=== PATIENT | female | born 1975 | race Two or more races ===

== ENCOUNTER → 2019-05-20 | Outpatient (CLI) | payer OTHER ==
[~2019-05-20] MED LIST: GRAN1TAB PO; LORA0.5T PO; MYLASS PO; OMEP20CA3 PO; PROC25SU2 PO; SILV-4 TOP; ZOLP-189 PO; [UNRECOGNIZED DRUG - CODE] INJ
[2019-05-20 12:11] LABS: BASO # 0.1 10^3/uL (0.0-0.2); EOS # 0.1 10^3/uL (0.0-0.5); EOS % 1.5 % (0.0-3.0); HEMATOCRIT 47.6 % (36.0-47.0); HEMOGLOBIN 16.4 g/dl (12.0-15.5); LYMPH # 1.8 10^3/uL (1.5-5.0); LYMPH % 25.7 % (24.0-44.0); MEAN CORPUSCULAR HGB CONC 34.5 g/dl (32.0-36.5); MONO # 0.5 10^3/uL (0.0-0.8); NEUTROPHILS # 4.6 10^3/uL (1.5-8.5); NEUTROPHILS % 64.4 % (36.0-66.0); PLATELET COUNT, AUTOMATED 162 10^3/uL (150-450); RED BLOOD COUNT 5.47 10^6/uL (4.00-5.40); WHITE BLOOD COUNT 7.1 10^3/uL (4.0-10.0)
[2019-05-20 12:51] LABS: ALBUMIN 3.5 GM/DL (3.2-5.2); ALT/SGPT 47 U/L (12-78); BILIRUBIN,TOTAL 1.2 MG/DL (0.2-1.0); BLOOD UREA NITROGEN 14 MG/DL (7-18); CALCIUM LEVEL 8.9 MG/DL (8.5-10.1); CARBON DIOXIDE LEVEL 24 MEQ/L (21-32); CHLORIDE LEVEL 102 MEQ/L (98-107); CHOLESTEROL LEVEL 247 MG/DL (<200); CHOLESTEROL RISK RATIO 7.967 (<5); CREATININE FOR GFR 0.78 MG/DL (0.55-1.30); GLOMERULAR FILTRATION RATE > 60.0 (>58); GLUCOSE, FASTING 329 MG/DL (70-100); HDL CHOLESTEROL 31 MG/DL (>40); LDL CHOLESTEROL 137 MG/DL (<100); NON-HDL-C 216 MG/DL; SODIUM LEVEL 137 MEQ/L (136-145); TOTAL PROTEIN 6.8 GM/DL (6.4-8.2); TRIGLYCERIDES LEVEL 396 MG/DL (<150)
== END ==
LOC: M LAB 11:07
PROVIDERS: ATTEND Family Medicine
DX: Z00.00 Encounter for general adult medical examination without abnormal findings (principal)

== ENCOUNTER → 2019-08-11 | Outpatient (CLI) | payer OTHER ==
[~2019-08-11] MED LIST changes: +GASTROGRAFIN SOLUTION 30ML (Q9963) As Ordered ONE; +ISOVUE-370 76% 100ML VIAL (Q9967) As Ordered ONE
--- NOTE | 2019-08-11 18:20 | REP ---
CT neck: 08/11/2019. Indication: Lymphoma. Comparison: None. Technique: Axial images of the neck soft tissues were obtained following 100 ml IV Isovue 370. Sagittal and coronal reconstructions were provided. Findings: There is no abnormal solid soft tissue mass, abnormal fluid collection or cervical lymphadenopathy. The submandibular, parotid and thyroid glands are without focal abnormality. No significant vascular abnormalities are detected. The visualized ocular, intraorbital and intracranial anatomy is unremarkable as well. The airway is patent. Please see dedicated chest CT report for additional details. Impression: No cervical lymphadenopathy. Electronically Signed by Stone Houston DO 08/11/2019 06:11 P
--- NOTE | 2019-08-12 09:07 | REP ---
CT chest with IV contrast: History: Hodgkin's lymphoma, stage III. Uterine cancer. Comparison is made with imaging from prior PET-CT study May 30, 2016. CT contrast dose: 100 ml of intravenous Isovue 370. CT findings: There is no evidence of pleural or pericardial effusion. No hilar or mediastinal mass or adenopathy is seen. No axillary or supraclavicular adenopathy is appreciated. The lung manriquez are essentially clear. No pulmonary nodule or mass lesion is seen. No infiltrate is observed. No filling defect is observed in the pulmonary arterial tree. No other vascular abnormality is appreciated. Bone window settings show no bony destructive lesion. Impression: No active disease. Electronically Signed by Cem Wyman MD 08/12/2019 08:58 A
--- NOTE | 2019-08-12 09:41 | REP ---
CT abdomen and pelvis with IV and oral contrast: History: Hodgkin's lymphoma, stage III. Uterine cancer. Comparison is made with PET-CT findings from May 30, 2016. CT contrast dose: 100 ml of intravenous Isovue 370. 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 Clips are noted in the right upper quadrant indicating previous cholecystectomy. There is moderate diffuse fatty infiltration of the liver. No focal hepatic mass lesion is seen. The spleen is normal in size homogeneous in texture. No adrenal lesion is observed on either side. There is some fatty involution of the pancreas. No pancreatic mass lesion is seen. Kidneys enhance symmetrically and are morphologically intact. There is no evidence of upper abdominal lymphadenopathy. There are two or three clustered lymph nodes in the right common iliac lymph node chain. The largest of these measures 8 mm in short axis dimension. These appear unchanged from the May 30, [address] study[address] There is a normal left common iliac chain lymph node also unchanged. An external iliac lymph node is seen on the right measuring 7 mm in short axis dimension. This actually looks a little smaller than on May 30, 2016. Just below this, there is a larger right external iliac lymph node, 11 mm in short axis dimension, previously 14. There are stable right inguinal lymph nodes the largest of which measures 10 mm in short axis dimension. These are less numerous than on the PET CT study. No left inguinal adenopathy is appreciated. There is a lymph node along the left pelvic sidewall which was not visible on the PET CT. However, this is normal in size, 7 mm in short axis dimension. No abdominal wall defect is seen. Normal appendix is noted. Uterus is surgically absent. Urinary bladder is largely empty but unremarkable. No bony destructive lesion is seen. Impression: 1. Fatty infiltration of the liver. 2. Post cholecystectomy and hysterectomy. 3. Stable right iliac and inguinal lymph nodes Electronically Signed by Cem Wyman MD 08/12/2019 05:37 P
== END ==
LOC: M RAD 15:54
PROVIDERS: ATTEND Internal Medicine Medical Oncology
DX: Z85.42 Personal history of malignant neoplasm of other parts of uterus (principal); C81.20 Mixed cellularity Hodgkin lymphoma, unspecified site
CPT/HCPCS: 70491; 71260; 74177; Q9963; Q9967

== ENCOUNTER → 2019-08-12 | Outpatient (CLI) | payer OTHER ==
[~2019-08-12] MED LIST changes: -GASTROGRAFIN SOLUTION 30ML (Q9963) As Ordered ONE; -ISOVUE-370 76% 100ML VIAL (Q9967) As Ordered ONE
[2019-08-12 10:39] LABS: MALB URINE SIEMENS 31.8 MG/L; MAU/CREAT RATIO 15.9 MCG/MG (0.0-30.0)
[2019-08-12 10:46] LABS: HEMOGLOBIN A1c 12.5 %
== END ==
LOC: M LAB 08:57
PROVIDERS: ATTEND Physician Assistant Medical
DX: R73.9 Hyperglycemia, unspecified (principal)

== ENCOUNTER → 2019-09-09 | Outpatient (CLI) | payer OTHER ==
[~2019-09-09] MED LIST changes: +GLIP10TA18 PO; +LISI-542 PO; +MULTCAP PO
--- NOTE | 2019-09-10 12:12 | REP ---
PET/CT: HISTORY: Restaging Hodgkin's lymphoma lymph node right groin. COMPARISONS: Comparison CT study August 11, 2019. Comparison PET/CT May 30, 2016 and December 22, 2015. TECHNIQUE: 61 minutes following the intravenous injection of a 8.77 mCi dose of F-18 FDG, three-dimensional PET scintigraphy is acquired from the skull base to the proximal thighs. Triplanar noncontrast CT scanning is acquired through the same anatomic range for attenuation correction, and image registration with scan parameters optimized to minimize radiation exposure to the patient. PET scintigraphy and CT datasets were fused and displayed on a workstation with multiplanar and projection display capability. PET/CT FINDINGS: Head and neck soft tissues show no abnormal luis hypermetabolic uptake. There is some skeletal muscle and normal variant uptake about the shoulders. There is no abnormal hypermetabolic uptake above the diaphragm in the thorax. Spleen is not enlarged. No hypermetabolic uptake is seen within the liver or spleen. Gallbladder is surgically absent. Multiple previously identified small lymph nodes in the right common iliac, external iliac, internal iliac, and inguinal chain show hypermetabolic uptake. There are also hypermetabolic luis foci in the left inguinal and left internal iliac region on today's PET/CT. These lymph nodes are not new and have not changed significantly in size. There are hypermetabolic however today ranging in avidity from 2.60 to 7.25 in maximum standard uptake value. One of the right inguinal lymph nodes demonstrates this is 7.25 avidity. IMPRESSION: There is new hypermetabolic uptake in multiple previously noted lymph nodes which have not increased significantly in size or number. Hypermetabolic nodes are seen in the right common iliac, external iliac, internal iliac, and inguinal chain. Hypermetabolic nodes are noted in the left inguinal and left internal iliac chain. Electronically Signed by Cem Wyman MD 09/10/2019 06:27 P
== END ==
LOC: M PLARAD 14:29
PROVIDERS: ATTEND Internal Medicine Medical Oncology
DX: C81.95 Hodgkin lymphoma, unspecified, lymph nodes of inguinal region and lower limb (principal)
CPT/HCPCS: 78815; A9552

== ENCOUNTER → 2019-11-04 | Outpatient (CLI) | payer OTHER ==
[2019-11-04 10:12] LABS: ALBUMIN 3.9 GM/DL (3.2-5.2); ALT/SGPT 34 U/L (12-78); BILIRUBIN,TOTAL 1.1 MG/DL (0.2-1.0); BLOOD UREA NITROGEN 10 MG/DL (7-18); CALCIUM LEVEL 9.1 MG/DL (8.5-10.1); CARBON DIOXIDE LEVEL 26 MEQ/L (21-32); CHLORIDE LEVEL 101 MEQ/L (98-107); CHOLESTEROL LEVEL 187 MG/DL (<200); CHOLESTEROL RISK RATIO 6.032 (<5); CREATININE FOR GFR 0.77 MG/DL (0.55-1.30); GLOMERULAR FILTRATION RATE > 60.0 (>58); GLUCOSE, FASTING 101 MG/DL (70-100); HDL CHOLESTEROL 31 MG/DL (>40); HEMOGLOBIN A1c 6.5 %; LDL CHOLESTEROL 125 MG/DL (<100); NON-HDL-C 156 MG/DL; POTASSIUM SERUM 4.7 MEQ/L (3.5-5.1); SODIUM LEVEL 137 MEQ/L (136-145); TOTAL PROTEIN 7.3 GM/DL (6.4-8.2); TRIGLYCERIDES LEVEL 156 MG/DL (<150)
== END ==
LOC: M LAB 09:14
PROVIDERS: ATTEND Physician Assistant Medical
DX: E11.9 Type 2 diabetes mellitus without complications (principal)

== ENCOUNTER → 2019-12-10 | Outpatient (CLI) | payer OTHER ==
[~2019-12-10] MED LIST changes: +GASTROGRAFIN SOLUTION 30ML (Q9963) As Ordered ONE; +ISOVUE-370 76% 100ML VIAL (Q9967) As Ordered ONE
--- NOTE | 2019-12-10 14:31 | REP ---
REASON: Followup lymphoma. COMPARISON: Multiple latest 08/11/2019. CONTRAST: 100 mL Isovue 370. The mediastinum and pulmonary robbi are unchanged. There is no mass or adenopathy. There are no pleural or pericardial effusions. The imaged osseous structures are stable and intact. Evaluation of the lung manriquez shows them to be stable. No new abnormal nodules, masses or opacities have developed. IMPRESSION: Stable CT examination of the chest. There is no evidence of acute disease. Electronically Signed by Davon Gr DO 12/10/2019 02:34 P
--- NOTE | 2019-12-10 14:39 | REP ---
REASON: Followup Hodgkin lymphoma. COMPARISON: Multiple, the latest contrast enhanced exam 08/11/2019. CONTRAST: 100 mL Isovue 370. The liver, spleen, pancreas, adrenal glands, and kidneys are within normal limits and essentially unchanged. The abdominal aorta and paraaortic regions are within normal limits and essentially unchanged. Once again, note is made of multiple nonenlarged lymph nodes along each iliac chain extending into the pelvis, however, these nodes are nonenlarged by CT criteria and they have gotten slightly smaller compared to the latest prior contrast enhanced CT. These areas cannot be exactly compared to the CT images obtained during PET/CT of 09/09/[address] is a noncontrast enhanced exam. There is no free fluid or free air in the abdomen or pelvis. The intra-abdominal and intrapelvic bowel loops are within normal limits essentially unchanged. Bone window technique throughout the entire exam shows the osseous structures to be stable and intact. IMPRESSION: Multiple retroperitoneal lymph nodes extending into the intrapelvic iliac chain and sidewall bilaterally as described above. Electronically Signed by Davon Gr DO 12/11/2019 08:32 A
== END ==
LOC: M RAD 10:44
PROVIDERS: ATTEND Internal Medicine Medical Oncology
DX: C81.90 Hodgkin lymphoma, unspecified, unspecified site (principal); C54.1 Malignant neoplasm of endometrium
CPT/HCPCS: 71260; 74177; Q9963; Q9967

== ENCOUNTER → 2020-02-29 | Outpatient (REF) | payer OTHER ==
[~2020-02-29] MED LIST changes: -GASTROGRAFIN SOLUTION 30ML (Q9963) As Ordered ONE; -ISOVUE-370 76% 100ML VIAL (Q9967) As Ordered ONE
[2020-02-29 15:09] LABS: HEMOGLOBIN A1c 6.1 %
== END ==
LOC: M LAB REF 13:57
PROVIDERS: ATTEND Physician Assistant Medical
DX: E11.9 Type 2 diabetes mellitus without complications (principal)

== ENCOUNTER → 2020-03-07 | Outpatient (CLI) | payer OTHER ==
[~2020-03-07] MED LIST changes: +GASTROGRAFIN SOLUTION 30ML (Q9963) As Ordered ONE; +ISOVUE-370 76% 100ML VIAL As Ordered ONE
--- NOTE | 2020-03-07 14:46 | REP ---
REASON: History of uterine cancer. All priors reviewed, the latest 12/10/2019. CONTRAST: 100 mL Isovue 370. The mediastinum and pulmonary robbi are stable. No mass or adenopathy has developed. There are no pleural or pericardial effusions. The imaged osseous structures are stable and intact. Evaluation of the lung manriquez shows a new 1 cm sized ground-glass nodule in the right middle lobe abutting the major fissure. There are no other abnormal nodules, masses, or opacities. IMPRESSION: New right middle lobe ground-glass nodule as described above. According to the reviews Fleischner Society criteria, this represents a category 4B lesion. CT/PET recommended at this time. Electronically Signed by Davon Gr DO 03/07/2020 02:53 P
--- NOTE | 2020-03-07 14:58 | REP ---
REASON FOR EXAM: Followup, history of lymphoma and endometrial carcinoma. COMPARISON: Multiple, the latest 12/10/2019. COMPARISON: 100 mL Isovue-370. The liver, spleen, pancreas, adrenal glands, and kidneys are unchanged. The abdominal aorta and para-aortic regions are unchanged. The intra-abdominal and intrapelvic bowel loops and their mesenteries are again seen to be within normal limits. No free fluid or free air is seen in the abdomen or pelvis. Stable lymph nodes are again seen in the retroperitoneum and iliac chain bilaterally. Bone window technique throughout the examination shows the osseous structures to be stable. IMPRESSION: Stable exam. No acute disease. Findings as described above. Electronically Signed by Davon Gr DO 03/07/2020 03:06 P
== END ==
LOC: M RAD 09:24
PROVIDERS: ATTEND Internal Medicine Medical Oncology
DX: Z85.3 Personal history of malignant neoplasm of breast (principal); Z85.79 Personal history of other malignant neoplasms of lymphoid, hematopoietic and related tissues; R91.8 Other nonspecific abnormal finding of lung field; Z85.42 Personal history of malignant neoplasm of other parts of uterus
CPT/HCPCS: 71260; 74177; Q9963; Q9967

== ENCOUNTER → 2020-03-08 | Outpatient (CLI) | payer OTHER ==
[~2020-03-08] MED LIST changes: -GASTROGRAFIN SOLUTION 30ML (Q9963) As Ordered ONE; -ISOVUE-370 76% 100ML VIAL As Ordered ONE
--- NOTE | 2020-03-09 08:21 | REP ---
REASON: Followup. Patient has a history of stage II B Hodgkin's lymphoma and FIGO stage I grade 2 endometrial adenocarcinoma diagnosed in 2009. Prior exams were reviewed, the latest 09/09/2019. Latest prior PET-CT showed hypermetabolic activity in multiple right common iliac, external iliac, internal iliac and inguinal lymph nodes with hypermetabolic activity also seen in the left inguinal and left internal iliac chain. Prior CT examination chest, abdomen, and pelvis 03/07/2020 was reviewed. That examination showed a new ground-glass nodule in the right middle lobe and nonenlarged pelvic lymph nodes appearing stable in size compared to prior CT examination chest abdomen and pelvis 12/10/2019. After the intravenous administration of 802 millicuries of FDG-18, triplane whole body PET-CT was performed from the skull base to the mid thigh. There is no abnormal hypermetabolic activity seen on the neck, chest, abdomen, or pelvis. The ground-glass nodule seen on the prior CT scan is not hypermetabolic. Hypermetabolic activity seen previously in multiple pelvic lymph node chains is no longer present and there is no abnormal hypermetabolic activity seen within the pelvic lymph node chains. IMPRESSION: Negative PET-CT. Electronically Signed by Davon Gr DO 03/09/2020 09:35 A
== END ==
LOC: M PLARAD 09:10
PROVIDERS: ATTEND Internal Medicine Medical Oncology
DX: C81.95 Hodgkin lymphoma, unspecified, lymph nodes of inguinal region and lower limb (principal)
CPT/HCPCS: 78815; A9552

== ENCOUNTER → 2020-09-07 | Outpatient (CLI) | payer OTHER ==
[2020-09-07 12:22] LABS: APPEARANCE, URINE HAZY (CLEAR); BACTERIA, URINE AUTO NEGATIVE (NEGATIVE); BILIRUBIN, URINE AUTO NEGATIVE (NEGATIVE); BLOOD, URINE BLOOD NEGATIVE (NEGATIVE); COLOR, URINE STRAW (YELLOW); GLUCOSE, URINE (UA) AUTO NEGATIVE (NEGATIVE); KETONE, URINE AUTO 1+ mg/dL (NEGATIVE); LEUKOCYTE ESTERASE, URINE AUTO 2+ (NEGATIVE); MUCUS, URINE SMALL (NEGATIVE); NITRITE, URINE AUTO NEGATIVE (NEGATIVE); PROTEIN, URINE AUTO NEGATIVE (NEGATIVE); RBC, URINE AUTO 2 /HPF (0-3); SPECIFIC GRAVITY URINE AUTO 1.006 (1.002-1.035); SQUAMOUS EPITHELIAL CELL UR AU 1 /HPF (0-6); UROBILINOGEN, URINE AUTO 0.2 mg/dL (0.0-2.0); WBC, URINE AUTO 9 /HPF (0-3)
[2020-09-07 12:46] LABS: ALT/SGPT 43 U/L (12-78); BILIRUBIN,TOTAL 0.7 MG/DL (0.2-1.0); BLOOD UREA NITROGEN 16 MG/DL (7-18); CALCIUM LEVEL 9.3 MG/DL (8.5-10.1); CARBON DIOXIDE LEVEL 26 MEQ/L (21-32); CHLORIDE LEVEL 104 MEQ/L (98-107); CHOLESTEROL LEVEL 223 MG/DL (<200); CHOLESTEROL RISK RATIO 5.439 (<5); CREATININE FOR GFR 0.87 MG/DL (0.55-1.30); GLOMERULAR FILTRATION RATE > 60.0 (>58); GLUCOSE, FASTING 109 MG/DL (70-100); HDL CHOLESTEROL 41 MG/DL (>40); HEMOGLOBIN A1c 6.4 %; LDL CHOLESTEROL 162 MG/DL (<100); NON-HDL-C 182 MG/DL; POTASSIUM SERUM 4.9 MEQ/L (3.5-5.1); SODIUM LEVEL 136 MEQ/L (136-145); TOTAL PROTEIN 7.3 GM/DL (6.4-8.2); TRIGLYCERIDES LEVEL 98 MG/DL (<150)
== END ==
LOC: M LAB 11:30
PROVIDERS: ATTEND Physician Assistant Medical
DX: E11.9 Type 2 diabetes mellitus without complications (principal)

== ENCOUNTER → 2021-09-14 | Outpatient (CLI) | payer OTHER ==
[~2021-09-14] MED LIST changes: -LISI-542 PO; +LISI5TAB11 PO
[2021-09-14 10:57] LABS: BASO # 0.1 10^3/uL (0.0-0.2); BASO % 0.8 % (0.0-1.0); EOS # 0.2 10^3/uL (0.0-0.5); EOS % 1.8 % (0.0-3.0); HEMATOCRIT 46.3 % (36.0-47.0); HEMOGLOBIN 15.3 g/dl (12.0-15.5); LYMPH # 2.1 10^3/uL (1.5-5.0); MEAN CORPUSCULAR HEMOGLOBIN 30.3 pg (27.0-33.0); MEAN CORPUSCULAR VOLUME 91.7 fl (80.0-96.0); MONO # 0.6 10^3/uL (0.0-0.8); NEUTROPHILS # 5.7 10^3/uL (1.5-8.5); NEUTROPHILS % 65.9 % (36.0-66.0); PLATELET COUNT, AUTOMATED 161 10^3/uL (150-450); RED BLOOD COUNT 5.05 10^6/uL (4.00-5.40); WHITE BLOOD COUNT 8.6 10^3/uL (4.0-10.0)
[2021-09-14 11:25] LABS: ALBUMIN 3.9 GM/DL (3.2-5.2); ALT/SGPT 45 U/L (12-78); BILIRUBIN,TOTAL 0.7 MG/DL (0.2-1.0); BLOOD UREA NITROGEN 20 MG/DL (7-18); CALCIUM LEVEL 9.7 MG/DL (8.5-10.1); CARBON DIOXIDE LEVEL 30 MEQ/L (21-32); CHLORIDE LEVEL 105 MEQ/L (98-107); CHOLESTEROL LEVEL 221 MG/DL (<200); CHOLESTEROL RISK RATIO 4.911 (<5); CREATININE FOR GFR 0.81 MG/DL (0.55-1.30); GLOMERULAR FILTRATION RATE > 60.0 (>58); GLUCOSE, FASTING 112 MG/DL (70-100); HDL CHOLESTEROL 45 MG/DL (>40); LDL CHOLESTEROL 152 MG/DL (<100); NON-HDL-C 176 MG/DL; POTASSIUM SERUM 5.1 MEQ/L (3.5-5.1); SODIUM LEVEL 139 MEQ/L (136-145); TOTAL PROTEIN 7.4 GM/DL (6.4-8.2); TRIGLYCERIDES LEVEL 122 MG/DL (<150)
== END ==
LOC: M LAB 09:40
PROVIDERS: ATTEND Family Medicine
DX: Z00.00 Encounter for general adult medical examination without abnormal findings (principal); E11.9 Type 2 diabetes mellitus without complications

== ENCOUNTER 2022-01-09 18:17 | Emergency (ER) | payer OTHER ==
[~2022-01-09] VITALS: Ht 160 cm; Wt 81.8 kg
[2022-01-09 21:27] LABS: BASO # 0.1 10^3/uL (0.0-0.2); BASO % 0.7 % (0.0-1.0); EOS # 0.2 10^3/uL (0.0-0.5); EOS % 2.1 % (0.0-3.0); HEMATOCRIT 42.4 % (36.0-47.0); HEMOGLOBIN 14.7 g/dl (12.0-15.5); LYMPH # 2.7 10^3/uL (1.5-5.0); LYMPH % 35.5 % (24.0-44.0); MEAN CORPUSCULAR HEMOGLOBIN 30.8 pg (27.0-33.0); MEAN CORPUSCULAR HGB CONC 34.7 g/dl (32.0-36.5); MEAN CORPUSCULAR VOLUME 88.7 fl (80.0-96.0); MONO # 0.6 10^3/uL (0.0-0.8); MONO % 7.6 % (2.0-8.0); NEUTROPHILS # 4.1 10^3/uL (1.5-8.5); NEUTROPHILS % 53.8 % (36.0-66.0); PLATELET COUNT, AUTOMATED 142 10^3/uL (150-450); RED BLOOD COUNT 4.78 10^6/uL (4.00-5.40); WHITE BLOOD COUNT 7.6 10^3/uL (4.0-10.0)
[2022-01-09] MEDS ORDERED: PROHANCE 279.3MG/ML 15ML VIAL As Ordered ONE (21:44)
[2022-01-09 21:58] LABS: BLOOD UREA NITROGEN 14 MG/DL (7-18); C REACTIVE PROTEIN QUANTITATIV 0.32 MG/DL (0.00-0.30); CARBON DIOXIDE LEVEL 30 MEQ/L (21-32); CHLORIDE LEVEL 108 MEQ/L (98-107); GLOMERULAR FILTRATION RATE > 60.0 (>58); GLUCOSE, FASTING 119 MG/DL (70-100); POTASSIUM SERUM 3.8 MEQ/L (3.5-5.1); SODIUM LEVEL 141 MEQ/L (136-145)
[2022-01-09 22:59] VITALS: BP 154/85
== END 2022-01-10 | disposition home or self-care (01) ==
LOC: M ED 18:17
DX: H53.2 Diplopia (principal); E11.9 Type 2 diabetes mellitus without complications; Z85.71 Personal history of Hodgkin lymphoma; Z92.21 Personal history of antineoplastic chemotherapy; Z91.018 Allergy to other foods; Z88.8 Allergy status to other drugs, medicaments and biological substances
CPT/HCPCS: 70450; 70553; 80048; 85025; 86140; 86618; 99284; A9576

== ENCOUNTER → 2022-01-12 | Outpatient (CLI) | payer OTHER ==
[2022-01-12 10:46] LABS: C REACTIVE PROTEIN QUANTITATIV 0.36 MG/DL (0.00-0.30); FREE T4 0.8 NG/DL (0.76-1.46); THYROID STIMULATING HORMONE 2.62 uIU/ML (0.358-3.740)
== END ==
LOC: M LAB 09:19
PROVIDERS: ATTEND Nurse Practitioner Family
DX: H53.2 Diplopia (principal)

== ENCOUNTER → 2022-01-23 | Outpatient (CLI) | payer OTHER ==
[2022-01-23 13:40] LABS: RHEUMATOID FACTOR QUANT < 10.0 IU/ML (<15.0)
[2022-01-23 13:49] LABS: FOLATE 16.2 NG/ML; VITAMIN B12 LEVEL 605 PG/ML
== END ==
LOC: M LAB 11:42
PROVIDERS: ATTEND Psychiatry & Neurology Neurology
DX: H53.2 Diplopia (principal); H49.40 Progressive external ophthalmoplegia, unspecified eye; H05.119 Granuloma of unspecified orbit

== ENCOUNTER 2022-02-28 17:19 | Emergency (ER) | payer OTHER ==
[~2022-02-28] VITALS: Ht 160 cm; Wt 85.3 kg
[2022-02-28 17:20] VITALS: BP 174/96
[2022-02-28] MEDS ORDERED: ACETAMINOPHEN 325 MG TAB PO ONE (20:40)
[2022-02-28] MEDS ORDERED: NS 1,000 ML IV ONE (20:40)
[2022-02-28 21:34] LABS: BASO # 0.1 10^3/uL (0.0-0.2); BASO % 0.7 % (0.0-1.0); EOS # 0.1 10^3/uL (0.0-0.5); EOS % 1.9 % (0.0-3.0); HEMATOCRIT 43.5 % (36.0-47.0); HEMOGLOBIN 14.7 g/dl (12.0-15.5); LYMPH # 2.8 10^3/uL (1.5-5.0); LYMPH % 40.5 % (24.0-44.0); MEAN CORPUSCULAR HEMOGLOBIN 30.7 pg (27.0-33.0); MEAN CORPUSCULAR HGB CONC 33.8 g/dl (32.0-36.5); MEAN CORPUSCULAR VOLUME 90.8 fl (80.0-96.0); MONO # 0.4 10^3/uL (0.0-0.8); MONO % 6.3 % (2.0-8.0); NEUTROPHILS # 3.5 10^3/uL (1.5-8.5); NEUTROPHILS % 50.3 % (36.0-66.0); PLATELET COUNT, AUTOMATED 153 10^3/uL (150-450); RED BLOOD COUNT 4.79 10^6/uL (4.00-5.40); WHITE BLOOD COUNT 6.9 10^3/uL (4.0-10.0)
[2022-02-28] MEDS ORDERED: methylPREDNISolone 125MG 2ML VIAL IV ONE (21:55)
[2022-02-28 22:03] LABS: ERYTHROCYTE SEDIMENTATION RATE 8 mm/hr (0-20)
[2022-02-28 22:06] LABS: ALBUMIN 3.8 GM/DL (3.2-5.2); ALT/SGPT 32 U/L (12-78); BILIRUBIN,DIRECT < 0.1 MG/DL (0.0-0.2); BILIRUBIN,TOTAL 0.5 MG/DL (0.2-1.0); C REACTIVE PROTEIN QUANTITATIV < 0.30 MG/DL (0.00-0.30); LIPASE 89 U/L (73-393); TOTAL PROTEIN 6.9 GM/DL (6.4-8.2)
[2022-02-28] MEDS ORDERED: PRED10TA2 PO (23:11)
[2022-02-28] MEDS ORDERED: PRED20TA PO (23:11)
== END 2022-02-28 23:57 | disposition home or self-care (01) ==
LOC: M ED 17:19
DX: R51.9 Headache, unspecified (principal); H49.40 Progressive external ophthalmoplegia, unspecified eye; E10.9 Type 1 diabetes mellitus without complications; Z85.71 Personal history of Hodgkin lymphoma; Z85.42 Personal history of malignant neoplasm of other parts of uterus; H53.2 Diplopia; Z91.018 Allergy to other foods; Z88.8 Allergy status to other drugs, medicaments and biological substances
CPT/HCPCS: 70450; 80047; 80076; 83690; 85025; 85652; 86140; 96361; 96374; 99283; J2930

== ENCOUNTER → 2023-01-09 | Outpatient (CLI) | payer OTHER ==
[~2023-01-09] MED LIST changes: +PRED10TA2 PO; +PRED20TA PO
[2023-01-09 13:16] LABS: HEMOGLOBIN A1c 6.6 % (4.0-6.0)
[2023-01-09 13:23] LABS: ALBUMIN 3.8 G/DL (3.2-5.2); ALKALINE PHOSPHATASE 63 U/L (46-116); ALT/SGPT 41 U/L (7.0-40); AST/SGOT 26 U/L (<34); BILIRUBIN,TOTAL 0.6 MG/DL (0.3-1.2); BLOOD UREA NITROGEN 21 MG/DL (9-23); CALCIUM LEVEL 9.1 MG/DL (8.5-10.1); CARBON DIOXIDE LEVEL 26 MMOL/L (20-31); CHLORIDE LEVEL 107 MMOL/L (98-107); CHOLESTEROL LEVEL 216 MG/DL (<200); CHOLESTEROL RISK RATIO 6.08 (<5); CREATININE FOR GFR 0.76 MG/DL (0.55-1.30); GLOMERULAR FILTRATION RATE > 60.0 (>58); GLUCOSE, FASTING 125 MG/DL (60-100); HDL CHOLESTEROL 35.5 MG/DL (>40); LDL CHOLESTEROL 143.3 MG/DL (<100); NON-HDL-C 180.5 MG/DL; SODIUM LEVEL 139 MMOL/L (136-145); TOTAL PROTEIN 6.8 G/DL (5.7-8.2); TRIGLYCERIDES LEVEL 186 MG/DL (<150)
== END ==
LOC: M LAB 11:22
PROVIDERS: ATTEND Nurse Practitioner Family
DX: E78.2 Mixed hyperlipidemia (principal); E11.9 Type 2 diabetes mellitus without complications

== ENCOUNTER 2023-01-29 10:47 | Day surgery (SDC) | payer OTHER ==
[~2023-01-29] VITALS: Ht 160 cm; Wt 82.7 kg
[~2023-01-29 10:47] MED LIST changes: +IBUP80TA PO; +NS 1,000 ML IV ONE; +TOPI-254 PO
[2023-01-29] MEDS ORDERED: propofoL 200 MG/20 ML VIAL As Ordered ONE (11:38)
[2023-01-29] MEDS ORDERED: LIDOCAINE 2% 100MG/5ML SDV (FOR ANES.) As Ordered ONE (11:38)
[2023-01-29 11:56] VITALS: BP 149/79
== END 2023-01-29 12:22 | disposition home or self-care (01) ==
LOC: M OPP 10:47
PROVIDERS: ATTEND Surgery
DX: Z12.11 Encounter for screening for malignant neoplasm of colon (principal); K64.0 First degree hemorrhoids; Z79.1 Long term (current) use of non-steroidal anti-inflammatories (NSAID); Z79.899 Other long term (current) drug therapy; Z88.8 Allergy status to other drugs, medicaments and biological substances; Z91.018 Allergy to other foods

== ENCOUNTER → 2024-03-30 | Outpatient (CLI) | payer OTHER ==
[~2024-03-30] MED LIST changes: -NS 1,000 ML IV ONE; +TOPI-21 PO; -TOPI-254 PO
[2024-03-30 11:43] LABS: BASO # 0.1 10^3/uL (0.0-0.2); BASO % 0.7 % (0.0-1.0); EOS # 0.1 10^3/uL (0.0-0.5); HEMATOCRIT 44.1 % (36.0-47.0); HEMOGLOBIN 14.7 g/dl (12.0-15.5); LYMPH # 2.5 10^3/uL (1.5-5.0); LYMPH % 37.1 % (24.0-44.0); MEAN CORPUSCULAR HEMOGLOBIN 30.3 pg (27.0-33.0); MEAN CORPUSCULAR HGB CONC 33.3 g/dl (32.0-36.5); MEAN CORPUSCULAR VOLUME 90.9 fl (80.0-96.0); MONO # 0.5 10^3/uL (0.0-0.8); MONO % 6.6 % (2.0-8.0); NEUTROPHILS # 3.7 10^3/uL (1.5-8.5); NEUTROPHILS % 54.3 % (36.0-66.0); PLATELET COUNT, AUTOMATED 135 10^3/uL (150-450); RED BLOOD COUNT 4.85 10^6/uL (4.00-5.40); WHITE BLOOD COUNT 6.8 10^3/uL (4.0-10.0)
[2024-03-30 12:15] LABS: ALBUMIN 3.9 G/DL (3.2-5.2); ALKALINE PHOSPHATASE 63 U/L (46-116); ALT/SGPT 32 U/L (7.0-40); AST/SGOT 17 U/L (<34); BILIRUBIN,TOTAL 0.6 MG/DL (0.3-1.2); BLOOD UREA NITROGEN 17 MG/DL (9-23); CALCIUM LEVEL 9.2 MG/DL (8.5-10.1); CARBON DIOXIDE LEVEL 27 MMOL/L (20-31); CHLORIDE LEVEL 109 MMOL/L (98-107); CREATININE FOR GFR 0.92 MG/DL (0.55-1.30); GLOMERULAR FILTRATION RATE > 60.0 (>58); GLUCOSE, FASTING 118 MG/DL (60-100); POTASSIUM SERUM 4.4 MMOL/L (3.5-5.1); SODIUM LEVEL 142 MMOL/L (136-145); TOTAL PROTEIN 6.6 G/DL (5.7-8.2)
== END ==
LOC: M LAB 10:45
PROVIDERS: ATTEND Psychiatry & Neurology Neurology
DX: R51.9 Headache, unspecified (principal); H53.2 Diplopia

== ENCOUNTER → 2024-11-10 | Outpatient (REF) | payer OTHER ==
[~2024-11-10] MED LIST changes: +GLIP-320 PO; -GLIP10TA18 PO
== END ==
LOC: M LAB REF 17:26
PROVIDERS: ATTEND Family Medicine
DX: R35.0 Frequency of micturition (principal)